=== PATIENT | female | born 1960 | race Caucasian/White ===

== ENCOUNTER 2016-10-09 | Emergency (ER) | payer OTHER, SELFPAY ==
[~2016-10-09] VITALS: Ht 172.7 cm; Wt 87.5 kg
[2016-10-09 00:02] VITALS: BP 168/94
[2016-10-09] MEDS ORDERED: FLUCONAZOLE 100 MG TABLET PO ONE (00:30)
== END 2016-10-09 01:02 | disposition home or self-care (01) ==
LOC: ED 00:30
DX: B35.9 Dermatophytosis, unspecified (principal)
CPT/HCPCS: 99283

== ENCOUNTER 2018-06-23 23:27 | Emergency (ER) | payer OTHER ==
[~2018-06-23] VITALS: Ht 172.7 cm; Wt 91.2 kg
[2018-06-23 23:29] VITALS: BP 185/102
== END 2018-06-23 23:53 | disposition home or self-care (01) ==
LOC: ED 23:35
DX: B86 Scabies (principal); I10 Essential (primary) hypertension
CPT/HCPCS: 99283